=== PATIENT | male | born 1990 | race Caucasian/White ===

== ENCOUNTER 2020-10-26 23:24 | Observation (INO) | payer MEDICAID, SELFPAY ==
--- NOTE | ~2020-10-26 | XR_ITS ---
XR knee RT 2V DATE: 10/27/2020 10:30 INDICATION: Fall, right knee injury, pain TECHNIQUE: AP and crosstable lateral views of right knee COMPARISON: None FINDINGS: There is mild suprapatellar knee joint effusion. No fracture or dislocation is evident. No radiopaque intra-articular loose body or chondrocalcinosis. IMPRESSION: Mild suprapatellar knee joint effusion No fracture or dislocation Reviewed, dictated and finalized at location A.
[2020-10-26 23:26] VITALS: BP 151/82; PULSE 104; RESP 18; TEMP 36.9; O2SAT 96
[2020-10-26 23:35] LABS: Glucose Point of Care 463 (65-105)
[2020-10-26 23:51] LABS: Basophils Percent Auto 0.2 % (0.2-1.2); Eosinophils Absolute Auto 0.1 K/mm3 (0-0.3); Eosinophils Percent Auto 1.4 % (0-4.4); Hematocrit 42.7 % (42.0-52.0); Hemoglobin 15.7 g/dL (14.0-18.0); Immature Granulocyte Absolute 0.04 K/mm3 (0.00-0.031); Immature Granulocyte Percent A 0.7 % (0-0.5); Lymphocytes Absolute Auto 1.98 K/mm3 (0.9-3.2); Lymphocytes Percent Auto 33.7 % (18.3-44.2); Mean Corpuscular HGB Conc 36.8 g/dl (32-36); Mean Corpuscular Volume 81.6 fl (80-100); Mean Platelet Volume 9.7 fl (7.4-10.4); Monocytes Absolute Auto 0.5 K/mm3 (0.1-0.6); Monocytes Percent Auto 8.8 % (2.6-8.5); Neutrophils Absolute Auto 3.3 K/mm3 (1.3-6.7); Neutrophils Percent Auto 55.2 % (45.5-73.1); Platelet Count Result 166 k/mm3 (150-375); Red Blood Count 5.23 M/mm3 (4.6-6.20); Red Cell Distribution Width 12.1 % (11.5-14.5); White Blood Count 5.9 K/mm3 (4.5-10.0)
[2020-10-26] MEDS: SODIUM CHLORIDE 0.9% IV 1,000 ML 999 ML IV CONT (23:58)
[2020-10-27] VITALS (7 sets, daily range): BP systolic 135–156; BP diastolic 63–80; PULSE 77–90; RESP 16–24; TEMP 36.4–36.7; O2SAT 94–98; BMI 37.0
--- NOTE | 2020-10-27 00:02 | ECG_ITS ---
Measurements Intervals [place] Rate: 88 P: 35 SD: 143 QRS: 71 QRSD: 122 T: 30 QT: 349 QTc: 424 Interpretive Statements SINUS RHYTHM INTRAVENTRICULAR CONDUCTION DELAY BORDERLINE ECG Electronically Signed On 10-27-2020 8:50:19 CDT by Dale Ambrocio D.O.
[2020-10-27] MEDS: SODIUM CHLORIDE 0.9% IV 1,000 ML 999 ML IV CONT (00:26)
[2020-10-27 01:17] LABS: Alanine Aminotransferase 46 U/L (4-50); Albumin Level 3.6 g/dL (3.5-5.1); Alkaline Phosphatase 71 U/L (38-126); Anion Gap 9 mmol/L (8-16); Aspartate Amino Transferase 25 U/L (17-59); Bilirubin,Total 0.6 mg/dL (0.2-1.3); Blood Urea Nitrogen 12 mg/dL (9-20); Calcium 8.9 mg/dL (8.4-10.2); Carbon Dioxide 23 mmol/L (22-30); Chloride 97 mmol/L (98-107); Estimated CRCL calculation 210 ml/min; Estimated Glomerular Filt Rate > 60; Glucose 412 mg/dL (75-110); Potassium 4.5 mmol/L (3.4-5.0); Sodium 129 mmol/L (137-145)
--- NOTE | 2020-10-27 01:27 | ED.GENADULT ---
HPI - General Adult General Chief complaint: Weakness Stated complaint: legs gave out Time Seen by Provider: 10/26/20 23:58 History of Present Illness HPI narrative: Patient a 30-year-old gentleman who presents the emergency department with chief complaint of generalized weakness. Patient reports that he has been progressively weaker and has been having increased thirst and polyuria for some time. The patient reports that he had outpatient labs done in the last few days that showed him to have a hemoglobin A1c of greater than 14. The patient states tonight he attempted to walk and felt as though his legs were giving out on him and were just like Jell-O. The patient states that he still feels extremely weak and extremely thirsty. The patient has been told that he probably is a diabetic but is currently not on any medication to control his blood sugars Related Data Allergies Allergy/AdvReac Type Severity Reaction Status Date / Time No Known Allergies Allergy Verified 10/27/20 00:27 Review of Systems Review of Systems: Narrative: A 10 system review of systems was completed on the patient and is negative except for what is stated in the HPI. Nursing and ancillary documentation was reviewed. Exam Narrative: Exam Narrative: GENERAL: Well-appearing, well-nourished, and in no acute distress. HEAD: Normocephalic, atraumatic. EYES: PERRLA and EOMI. ENT: Nares clear, no rhinorrhea or epistaxis. Mucous membranes moist. NECK: Supple. CHEST: Clear to auscultation. No respiratory distress. HEART: Regular rate and rhythm. No murmur heard. Normal peripheral pulses. ABDOMEN: Soft, nontender, nondistended, normal active bowel sounds. EXTREMITIES: Normal range of motion. No edema. SKIN: Warm, dry, no rash. NEURO: No focal deficits. Alert and oriented x3. PSYCH: Normal mood and affect. Course Vital Signs Vital signs: Vital Signs Temperature 36.9 C 10/26/20 23:26 Pulse Rate 104 H 10/26/20 23:26 Respiratory Rate 18 10/26/20 23:26 Blood Pressure 151/82 H 10/26/20 23:26 Pulse Oximetry 96 10/26/20 23:26 Temperature 36.9 C 10/26/20 23:26 Pulse Rate 90 10/27/20 01:19 Respiratory Rate 16 10/27/20 01:19 Blood Pressure 141/80 H 10/27/20 01:19 Pulse Oximetry 98 10/27/20 01:19 Medical Decision Making Vital Signs Vital Signs: Vital Signs Temperature 36.9 C 10/26/20 23:26 Pulse Rate 104 H 10/26/20 23:26 Respiratory Rate 18 10/26/20 23:26 Blood Pressure 151/82 H 10/26/20 23:26 Pulse Oximetry 96 10/26/20 23:26 Temperature 36.9 C 10/26/20 23:26 Pulse Rate 90 10/27/20 01:19 Respiratory Rate 16 10/27/20 01:19 Blood Pressure 141/80 H 10/27/20 01:19 Pulse Oximetry 98 10/27/20 01:19 Lab Data Result diagrams: 10/26/20 23:45 10/27/20 00:27 Labs: Lab Results 10/26/20 10/26/20 10/27/20 Range/Units 23:33 23:45 00:27 WBC 5.9 (4.5-10.0) K/mm3 RBC 5.23 (4.6-6.20) M/mm3 Hgb 15.7 (14.0-18.0) g/dL Hct 42.7 (42.0-52.0) % MCV 81.6 (80-100) fl MCH 30.0 (26-34) pg MCHC 36.8 H (32-36) g/dl RDW 12.1 (11.5-14.5) % Plt Count 166 (150-375) k/mm3 MPV 9.7 (7.4-10.4) fl Immature Gran % (Auto) 0.7 H (0-0.5) % Neut % (Auto) 55.2 (45.5-73.1) % Lymph % (Auto) 33.7 (18.3-44.2) % Hardin % (Auto) 8.8 H (2.6-8.5) % Eos % (Auto) 1.4 (0-4.4) % Baso % (Auto) 0.2 (0.2-1.2) % Lymph # (Auto) 1.98 (0.9-3.2) K/mm3 Hardin # (Auto) 0.5 (0.1-0.6) K/mm3 Eos # (Auto) 0.1 (0-0.3) K/mm3 Baso # (Auto) 0.0 (0.0-0.1) K/mm3 Abs Immat Gran (auto) 0.04 H (0.00-0.031) K/mm3 Absolute Neuts (auto) 3.3 (1.3-6.7) K/mm3 Absolute Nucleated RBC 0.0 (0.0-0.012) K/mm3 Nucleated RBC % 0.0 (0.0-0.2) % Sodium 129 L (137-145) mmol/L Potassium 4.5 (3.4-5.0) mmol/L Chloride 97 L (98-107) mmol/L Carbon Dioxide 23 (22-30) mmol/L Anion Gap 9 (8-16) mmol/L BUN
[2020-10-27] MEDS: INSULIN ASPART (*BKC) 100 UNITS/ML 8 UNITS SUB-Q (02:27)
[2020-10-27] MEDS: SODIUM CHLORIDE 0.9% IV 1,000 ML 150 ML IV CONT ×3 (02:59→17:21)
--- NOTE | 2020-10-27 03:13 | ADMGEN ---
This patient, Jasbir Falcon, was admitted to 3 Med Surg Room 314-01 at 02:53. Patient/family oriented to hospital policies and general routines including ID bracelet, bed and alarms, visiting hours, pain management, procedures, bathroom and other care routines, personal items, smoking policy, room service/diet, and visiting hours. Information on how to activate the Rapid Response Team has been discussed. Patient/Family are encouraged to report perceived risks to care and to ask questions if they do not understand what they are told or what they should do.
[2020-10-27 05:42] LABS: Glucose Point of Care 248 (65-105)
[2020-10-27 05:53] LABS: Add Urine Microscopic? YES; Appearance Urine Clear (Clear); Bilirubin Urine Negative (Negative); Blood Urine Negative (Negative); Color Urine Yellow (Yellow); Glucose Urine UA 3+ mg/dL (Negative); Ketones Urine 1+ mg/dL (Negative); Leukocyte Esterase Ur Negative LEU/UL (Negative); Nitrate Urine Negative (Negative); Protein Urine Negative (Negative); RBC Urine 0-2 /hpf (0-2); Urobilinogen Urine Negative mg/dL (<2.0); WBC Urine 0-3 /hpf
[2020-10-27 05:57] LABS: Specific Grav Ur 1.035 (1.001-1.035)
[2020-10-27] MEDS: glipiZIDE 5 MG TABLET PO (06:33)
[2020-10-27 06:47] LABS: Glucose Point of Care 258 (65-105)
[2020-10-27 07:56] LABS: Glucose Point of Care 326 (65-105)
[2020-10-27] MEDS: INSULIN ASPART (*BKC) 100 UNITS/ML SUB-Q ×3 (08:01→17:22)
[2020-10-27] MEDS: metFORMIN HCL 500 MG TABLET PO ×2 (08:02→17:21)
[2020-10-27 09:23] LABS: Alanine Aminotransferase 47 U/L (4-50); Albumin Level 3.6 g/dL (3.5-5.1); Alkaline Phosphatase 62 U/L (38-126); Anion Gap 7 mmol/L (8-16); Aspartate Amino Transferase 26 U/L (17-59); Bilirubin,Total 0.6 mg/dL (0.2-1.3); Blood Urea Nitrogen 9 mg/dL (9-20); Calcium 8.4 mg/dL (8.4-10.2); Carbon Dioxide 25 mmol/L (22-30); Chloride 101 mmol/L (98-107); Estimated CRCL calculation 278 ml/min; Estimated Glomerular Filt Rate > 60; Glucose 312 mg/dL (75-110); Potassium 3.8 mmol/L (3.4-5.0); Sodium 133 mmol/L (137-145)
--- NOTE | 2020-10-27 09:55 | PM.IMHP ---
H&P: HPI History of Present Illness Date/Time: 10/27/20 09:55 Chief Complaint: Weakness Narrative: Date of admission: 10/27/2020 Date of service: 10/27/2020 Jasbir Falcon is an obese 30 old with history of hypertension obstructive sleep apnea, and mild intermittent asthma who presented to the emergency department on 10/27/2020 with complaints of feeling weak, stating that his legs gave out. Last night, he was walking into a gas station when his knees buckled and he fell in the parking lot. He states that over the past week, he had been experiencing increasing weakness and fell 3 times in the past week. He did not hit his head or lose consciousness. He states that his symptoms began about a month and a half ago when he started noticing numbness and tingling in his feet. He also noted that over the past couple of months, he was unable to quench his thirst and had significant polydipsia. Also endorses polyphagia and polyuria, stating he is urinating as frequently as every 20 minutes. He went to his primary care provider on 10/21/2020 because of the symptoms and had lab work done which he reviewed on a [facility] Chart dayami on Wednesday. This reportedly demonstrated an A1c of 14.0, although he is unable to pull up these results at this time. He has not been over the results with his primary care provider, presumably because these results were released just prior to the weekend. With further questioning, the patient tells me he does not monitor his diet and he drinks approximately 2 cans of soda per day, as well as high sugar fruit juices. He does not exercise and in fact has been more sedentary due to his weakness. He feels that he injured his left knee when he fell. He states that last night, he was unable to get up from the bed without assistance, which was upsetting to him because he has had any problems like this in the past. In the ER, he was mildly tachycardic at 104, BP was elevated at 151/82, additional vital signs were stable, CBC unremarkable, sodium was 129, potassium 4.5, chloride 97, bicarb 23, BUN 12, creatinine 0.7, glucose elevated at 412, anion gap is normal, beta hydroxybutyrate was 1.00. He has been admitted to the hospitalist service for observation. Supervising physician for this history and physical is Dr. Melody Baltazar. Review of Systems Review of Systems: Narrative: All systems reviewed with pertinent positives and negatives as per HPI. Additionally, patient denies shortness breath, wheezing, chest pain. No cough. Denies abdominal pain. No diarrhea. Bowel movements have been regular. He had been endorsing nausea with infrequent episodes of vomiting over the past couple of weeks. No fever or chills. Denies wounds of his feet. No confusion. No significant fatigue. Denies blurred vision. Denies erectile dysfunction. He notes mild chronic lower extremity edema. He states that he is scheduled for a lumbar CT and MRI on 10/29/2020 for further evaluation of his lower extremity weakness. [facility] Past Medical History Medical History (Updated 10/27/20 @ 10:24 by Elaina Ralph PA-C) Hypertension Mild intermittent asthma Obstructive sleep apnea Surgical History Surgical History (Updated 10/27/20 @ 10:40 by Elaina Ralph PA-C) History of repair of left rotator cuff Family History Family History (Updated 10/27/20 @ 10:18 by Elaina Ralph PA-C) Mother Diabetes mellitus Grandparent Diabetes mellitus Father Heart disease Grandparent Heart disease Dementia Sibling Liver cancer Social History Social History (Updated 10/27/20 @ 10:21 by Elaina Ralph PA-C) Social History: Mr. Falcon lives at home with his fiance and her parents. He was released from residential on 09/06/20, after being incarcerated for 2 years. He is unemployed and looking for work. His primary care provider is Dr. Shirley. He designates his timeBecky, as his surrogate decision maker. He would like to b
[2020-10-27 10:06] LABS: Creatine Kinase 53 U/L (55-170)
[2020-10-27 10:27] LABS: Hemoglobin A1C > 14.0 % (<5.7)
[2020-10-27] MEDS: lisinopriL 20 MG TABLET 40 MG PO (10:37)
[2020-10-27 11:38] LABS: Glucose Point of Care 252 (65-105)
[2020-10-27] MEDS: ACETAMINOPHEN 325 MG TABLET 650 MG PO (14:27)
[2020-10-27 16:31] LABS: Glucose Point of Care 212 (65-105)
[2020-10-27 22:03] LABS: Glucose Point of Care 267 (65-105)
[2020-10-28 02:14] VITALS: PULSE 77; RESP 20; O2SAT 95
[2020-10-28] MEDS: SODIUM CHLORIDE 0.9% IV 1,000 ML 150 ML IV CONT (03:41)
[2020-10-28 06:00] VITALS: BP 120/68; PULSE 78; RESP 20; TEMP 36.5; O2SAT 99
[2020-10-28] MEDS: glipiZIDE 5 MG TABLET PO (06:22)
[2020-10-28 06:44] LABS: Anion Gap 4 mmol/L (8-16); Blood Urea Nitrogen 6 mg/dL (9-20); Calcium 8.3 mg/dL (8.4-10.2); Carbon Dioxide 25 mmol/L (22-30); Chloride 105 mmol/L (98-107); Estimated CRCL calculation 236 ml/min; Estimated Glomerular Filt Rate > 60; Glucose 225 mg/dL (75-110); Sodium 134 mmol/L (137-145)
[2020-10-28 07:51] LABS: Glucose Point of Care 221 (65-105)
[2020-10-28 08:12] LABS: Folic Acid > 20.0 ng/mL (2.76->20)
[2020-10-28] MEDS: INSULIN ASPART (*BKC) 100 UNITS/ML SUB-Q ×2 (08:49→12:13)
[2020-10-28] MEDS: metFORMIN HCL 500 MG TABLET PO (08:52)
[2020-10-28] MEDS: lisinopriL 20 MG TABLET 40 MG PO (08:52)
[2020-10-28 09:48] VITALS: O2SAT 93
[2020-10-28] MEDS: INSULIN HUMAN NPH (*BKC) 100 UNITS/ML 10 UNITS SUB-Q (10:11)
[2020-10-28 11:43] LABS: Glucose Point of Care 246 (65-105)
--- NOTE | 2020-10-28 12:25 | PM.DS ---
DS: Admitting Diagnosis Admitting Diagnosis Admitting Diagnosis: New onset diabetes mellitus DS: Discharge Diagnosis Discharge Diagnosis (1) Uncontrolled type 2 diabetes mellitus: Code(s): E11.65 - Type 2 diabetes mellitus with hyperglycemia Status: Acute Assessment and Plan: A1c is >14.0 Blood sugars since admission have ranged from 248-463. Urinalysis with 3+ glucose, 1+ ketones, and negative protein. BOHB is 1.0. Anion gap normal with no evidence of DKA. He was rehydrated with IV fluids. Accu-Cheks, sliding scale insulin, and hypoglycemic protocol was initiated. He was started on metformin 500 mg b.i.d. which he will continue as an outpatient. He will also be initiated on Invokana 100 mg daily. Started on nightly Lantus at 35 units. He received education from certified scrub tech and registered dietitian. He will be referred for outpatient dietary counseling. Extensive time spent educating patient on glucose monitoring and insulin administration. He will monitor blood sugars at home [facility] and record. He has outpatient follow-up with his PCP on 10/30/2020 and blood sugars will be reviewed at that time. He was counseled on lifestyle changes including weight reduction with reduce caloric intake and 30-60 minutes of aerobic exercise daily. He should cut out sugary beverages including soda and fruit punch, which he drinks daily (2) Generalized weakness: Code(s): R53.1 - Weakness Status: Acute Assessment and Plan: Weakness ongoing for approximately 1 month. Suspect this is related to uncontrolled hyperglycemia. He was evaluated PT/OT. TSH, B12, and folate within normal limits. He noted significant symptomatic improvement during his stay. He does have an outpatient MRI of lumbar spine scheduled per PCP tomorrow given his lower extremity weakness. No numbness, tingling, saddle anesthesia, loss of bowel/bladder control. Follow up with PCP on 10/30/20. (3) Fall: Code(s): W19.XXXA - Unspecified fall, initial encounter Status: Acute Assessment and Plan: Reports 3 falls within the past week. Secondary to weakness described above. CK is 53. He endorses right knee pain secondary to mechanical fall on 10/26/2020. Knee x-ray showed joint effusion without fracture or dislocation. Malcolm wrap applied. Tylenol as needed for pain. Fall precautions discussed. (4) Hypertension: Code(s): I10 - Essential (primary) hypertension Status: Acute Assessment and Plan: Blood pressure reviewed and was slightly elevated above target. BP prior to discharge was 120/68. Continue home lisinopril. (5) Obstructive sleep apnea: Code(s): G47.33 - Obstructive sleep apnea (adult) (pediatric) Status: Inactive Assessment and Plan: Continue CPAP titrated to home settings (6) Hyponatremia: Code(s): E87.1 - Hypo-osmolality and hyponatremia Status: Acute Assessment and Plan: Sodium low at 129 upon presentation. When corrected for hyperglycemia, sodium is appropriate at 134. Sodium levels normalized upon improvement of glucose levels. DS: Summary Hospital Course Reason for hospitalization: Hyperglycemia Hospital Course: Date of admission: 10/27/2020 Date of discharge: 10/28/2020 Jasbir Falcon is an obese 30 old with history of hypertension, obstructive sleep apnea, and mild intermittent asthma who presented to the emergency department on 10/27/2020 with complaints of feeling weak, stating that his legs gave out. He had fallen 3 times within the past week. He also noted polyuria, polyphagia, and polydipsia. Also noted numbness and tingling in his lower extremities ongoing for about 1 month. Upon presentation to the emergency department, he was mildly tachycardic at 104, BP was elevated at 151/82, additional vital signs were stable, CBC unremarkable, sodium was 129, potassium 4.5, chloride 97, bicarb 23, BUN 12, creatinine 0.7, gl
--- NOTE | 2020-10-28 13:20 | PC.NURSE ---
Initial outpatient DSMT and MNT completed. [facility] and to Dr. Shirley, PCP.
[2020-10-28 14:00] VITALS: BP 132/75; PULSE 88; RESP 20; TEMP 36.7; O2SAT 97
[2020-10-28 15:30] VITALS: BMI 37.0
== END 2020-10-28 16:45 | disposition home or self-care (01) ==
LOC: ANHED 10-27 01:29 → ANH3MEDSUR 10-27 02:30
PROVIDERS: Physician Assistant; Admitting Provider Internal Medicine; Emergency Provider Emergency Medicine; PCP Emergency Medicine; Visit Provider Internal Medicine
DX: E11.65 Type 2 diabetes mellitus with hyperglycemia (principal); R53.1 Weakness; I10 Essential (primary) hypertension; G47.33 Obstructive sleep apnea (adult) (pediatric); J45.20 Mild intermittent asthma, uncomplicated; M25.561 Pain in right knee; W19.XXXA Unspecified fall, initial encounter; E87.1 Hypo-osmolality and hyponatremia; Z87.891 Personal history of nicotine dependence
CPT/HCPCS: 36415; 73560; 80048; 80053; 81001; 82010; 82550; 82607; 82746; 82948; 83036; 84443; 85025; 93005; 96360; 96361; 97110; 97161; 97165; 99285; A9270; G0378; G0379; J1815; J7030

== ENCOUNTER → 2020-10-29 10:14 | Outpatient (CLI) | payer MEDICAID, SELFPAY ==
--- NOTE | ~2020-10-29 | MR_ITS ---
EXAMINATION: MR lumbar spine wo con DATE: 10/29/2020 10:46 INDICATION: Low back pain. TECHNIQUE: Magnetic resonance imaging (MRI) of the lumbar spine was performed without intravenous con trast. Sequences included sagittal T2-weighted FSE, sagittal T2-weighted FS FSE, sagittal T1-weighted FSE, and axial T2-weighted FSE. COMPARISON: None FINDINGS: There is 7 degrees levocurvature of lumbar spine. There are Schmorl's nodes at multiple lev els. There is mild chronic anterior wedging of T12 and L1 vertebral bodies. Intervertebral disc heigh ts are normal. The distal spinal cord signal intensity is normal. The conus medullaris is at L1-L2. T he following disc levels are specifically discussed: L1-L2: The disc does not extend beyond the endplate margin. There is mild bilateral facet joint osteo arthritis. There is no neural foraminal stenosis. There is no central canal stenosis. L2-L3: The disc does not extend beyond the endplate margin. There is moderate bilateral facet joint o steoarthritis. There is no neural foraminal stenosis. There is no central canal stenosis. L3-L4: The disc does not extend beyond the endplate margin. There is mild bilateral facet joint osteo arthritis. There is no neural foraminal stenosis. There is no central canal stenosis. L4-L5: The disc does not extend beyond the endplate margin. There is mild bilateral facet joint osteo arthritis. There is no neural foraminal stenosis. There is no central canal stenosis. L5-S1: There is a central protrusion with annular fissure. There is mild bilateral facet joint osteoa rthritis. There is mild bilateral neural foraminal stenosis. There is mild central canal stenosis. IMPRESSION: 1. Mild lumbar spondylosis. Reviewed, dictated and finalized at location B. IMPRESSION: 1. Mild lumbar spondylosis.
== END ==
PROVIDERS: PCP Emergency Medicine; Visit Provider Emergency Medicine
DX: M47.817 Spondylosis without myelopathy or radiculopathy, lumbosacral region (principal); M48.07 Spinal stenosis, lumbosacral region
CPT/HCPCS: 72148

== ENCOUNTER 2021-02-13 11:00 | Outpatient (RCR) | payer OTHER, SELFPAY ==
[2020-12-05 11:10] VITALS: BMI 39.6
[2020-12-05 11:12] VITALS: BMI 39.6
== END 2021-02-24 11:30 | disposition home or self-care (01) ==
LOC: ANHDMC 11:00
PROVIDERS: PCP Emergency Medicine; Visit Provider Emergency Medicine
DX: E11.21 Type 2 diabetes mellitus with diabetic nephropathy (principal); Z71.3 Dietary counseling and surveillance
CPT/HCPCS: 97802